=== PATIENT | male | born 1980 | race Caucasian/White ===

== ENCOUNTER → 2025-09-14 16:10 | Outpatient (REF) | payer OTHER, SELFPAY | LOC: RCS 16:10 | PROVIDERS: ATTENDING PHYSICIAN Physician Assistant Medical | DX: Z13.6 Encounter for screening for cardiovascular disorders (principal); K76.0 Fatty (change of) liver, not elsewhere classified; Z82.49 Family history of ischemic heart disease and other diseases of the circulatory system | CPT/HCPCS: 93306 ==